=== PATIENT | male | born 1950 | race Caucasian/White ===

== ENCOUNTER 2025-07-27 09:13 | Outpatient (CLI) | payer MEDICARE, SELFPAY ==
--- NOTE | 2025-07-27 09:40 | NEURO_ITS ---
Impression: # 74 year old with history of neck surgery in the past complains of left hand weakness. # Bilateral Ulnar Neuropathy around the elbows. # Mild left Carpal Tunnel Syndrome. # Needle/ EMG exam abnormal more so on 1st DI in the left more than right. # Also decreased motor unit potentials proximally suggestive of old injury though acute cannot be ruled out. # MRI of C- Spine suggested. Nerve Conduction Studies ?Stim Site NR Peak (ms) P-T Amp (?V) Site1 Site2 Delta-P (ms) Dist (cm) [place] (m/s) Left Median Anti Sensory (2-3nd Digit) Wrist ? 3.3 17.1 Wrist 2-3nd Digit 3.3 14.0 42 Wrist ? 3.2 17.2 Wrist 2-3nd Digit 3.3 14.0 42 Right Median Anti Sensory (2-3nd Digit) Wrist ? 3.1 18.8 Wrist 2-3nd Digit 3.1 14.0 45 Wrist ? 3.2 18.2 Wrist 2-3nd Digit 3.1 14.0 45 Left Radial Anti Sensory (Base 1st Digit) Wrist ? 2.1 12.3 Wrist Base 1st Digit 2.1 0.0 Right Radial Anti Sensory (Base 1st Digit) Wrist ? 2.6 11.5 Wrist Base 1st Digit 2.6 0.0 Left Ulnar Anti Sensory (5th Digit) Wrist ? 2.6 19.4 Wrist 5th Digit 2.6 14.0 54 Right Ulnar Anti Sensory (5th Digit) Wrist ? 2.6 18.7 Wrist 5th Digit 2.6 14.0 54 ?Stim Site NR Onset (ms) O-P Amp (mV) Site1 Site2 Delta-0 (ms) Dist (cm) [place] (m/s) Left Median Motor (Abd Poll Brev) Wrist ? 4.5 1.3 Elbow Wrist 5.9 31.0 53 Elbow ? 10.4 1.4 Right Median Motor (Abd Poll Brev) Wrist ? 3.5 2.5 Elbow Wrist 5.6 32.0 57 Elbow ? 9.1 2.3 Left Ulnar Motor (Abd Dig Minimi) Wrist ? 3.2 4.5 A Elbow Wrist 6.4 32.0 50 A Elbow ? 9.6 3.3 B Elbow Wrist 4.6 23.0 50 B Elbow ? 7.8 2.6 Right Ulnar Motor (Abd Dig Minimi) Wrist ? 2.7 6.1 A Elbow Wrist 6.4 32.0 50 A Elbow ? 9.1 5.2 B Elbow Wrist 4.2 21.0 50 B Elbow ? 6.9 4.5 F Wave Studies ?NR F-Lat (ms) L-R F-Lat (ms) Left Median (Mrkrs) (Abd Poll Brev) ? 26.66 0.64 Right Median (Mrkrs) (Abd Poll Brev) ? 27.31 0.64 Left Ulnar (Mrkrs) (Abd Dig Min) ? 35.84 0.03 Right Ulnar (Mrkrs) (Abd Dig Min) ? 35.81 0.03 Electromyography ?Side Muscle Nerve Root Ins Act Fibs Amp Dur Recrt Comment Right 1stDorInt Ulnar C8-T1 Nml Nml Nml Nml Nml Left 1stDorInt Ulnar C8-T1 Nml 1+ Nml >12ms +1 Right ABD Dig Min Ulnar C8-T1 Nml Nml Nml Nml Nml Left ABD Dig Min Ulnar C8-T1 Nml 1+ Nml >12ms +1 Left Abd Poll Brev Median C8-T1 Nml Nml Nml Nml Nml Right Abd Poll Brev Median C8-T1 Nml Nml Nml Nml Nml Right Abd Poll Long Radial (Post Int) C7-8 Nml Nml Nml Nml Nml Left Abd Poll Long Radial (Post Int) C7-8 Nml Nml Nml Nml Nml Left Biceps Musculocut C5-6 Nml Nml Nml >12ms +1 Right Biceps Musculocut C5-6 Nml Nml Nml Nml Nml Left BrachioRad Radial C5-6 Nml Nml Nml Nml Nml Right BrachioRad Radial C5-6 Nml Nml Nml Nml Nml Left Deltoid Axillary C5-6 Nml Nml Nml >12ms +1 Right Deltoid Axillary C5-6 Nml Nml Nml Nml Nml Right Ext Digitorum Radial (Post Int) C7-8 Nml Nml Nml Nml Nml Left Ext Digitorum Radial (Post Int) C7-8 Nml Nml Nml Nml Nml Right Ext Indicis Radial (Post Int) C7-8 Nml Nml Nml Nml Nml Left Ext Indicis Radial (Post Int) C7-8 Nml Nml Nml Nml Nml Right FlexPolLong Median (Ant Int) C7-8 Nml Nml Nml Nml Nml Left FlexPolLong Median (Ant Int) C7-8 Nml Nml Nml Nml Nml Left PronatorTeres Median C6-7 Nml Nml Nml Nml Nml Right PronatorTeres Median C6-7 Nml Nml Nml Nml Nml Left Triceps Radial C6-7-8 Nml Nml Nml >12ms +1 Right Triceps Radial C6-7-8 Nml Nml Nml Nml Nml
--- OUTSIDE RECORDS SUMMARY | 2025-07-27 10:02 | XMS_ITS | Patient Health Record ---
Author Organization [facility] Address [address] [place] [address] Care Team Providers Care Customs Patrol Officer Name Role Phone Dr. Gurjit Shin Primary Care Provider [phone] Pritesh Child Unavailable [phone] Jasmina Gutierrez Unavailable [phone] Migration, Provider Unavailable Unavailable Allergies No Known Allergies Results Component Value Reference Range Flag Notes Methylmalonic Acid-[facility] Reviewed date:04/24/2025 09:21:13 PM Interpretation: Performing Lab: Notes/Report: Test Performed by: [place] [address] Claim Technician: Paolo Mayer DO Methylmalonic Acid See Below Chart Name Results Units Flag Ref Range Methylmalonic Acid 0.27 0.00-0.40 INTERPRETIVE INFORMATION: MMA Serum/Plasma, Metabolic Disorder This test was developed and its performance characteristics determined by [facility]. It has not been cleared or approved by the US Food and Drug Administration. This test was performed in a CLIA certified laboratory and is intended for clinical purposes. Performed By: [facility] [address] [place] [id number] Gutter Hanger: Darell Bardales MD, PhD CLIA Number: [id number] Erythrocyte Sedimentation Ra te Reviewed date:04/24/2025 09:21:13 PM Interpretation: Performing Lab: Notes/Report: Test Performed by: [place] [id number] Claim Technician: Paolo Mayer DO ESR, Westergren 2 0-20 mm/hr Creatine Kinase Reviewed date:04/24/2025 09:21:13 PM Interpretation: Performing Lab: Notes/Report: Test Performed by: [place] [address] Claim Technician: Paolo Mayer DO CK 227 30-223 unit/L H Magnesium Reviewed date:04/24/2025 09:21:13 PM Interpretation: Performing Lab: Notes/Report: Test Performed by: [place] [address] Claim Technician: Paolo Mayer DO Magnesium Lvl 1.9 1.6-2.4 mg/dL CHINO by IFA Reflexive Profile -[facility] Reviewed date:05/30/2025 07:53:33 PM Interpretation: Performing Lab: Notes/Report: Test Performed by: [place] [address] Claim Technician: Paolo Mayer DO CHINO IFA Rflx See Below Chart Name Results Units Flag Ref Range Antinuclear Ab HEp-2, IgG <1:80 <1:80 CHINO Interpretive Comment See Note Antinuclear antibodies by IFA negative for homogeneous, speckled, nucleolar, centromere, and nuclear dots patterns. Cytoplasmic antibodies by IFA negative for reticular/AMA, discrete/GW body-like, polar/golgi-like, rods and rings, and cytoplasmic speckled patterns. INTERPRETIVE INFORMATION: CHINO Interpretive Comment Presence of antinuclear antibodies (CHINO) is a hallmark feature of systemic autoimmune rheumatic diseases (SARD). However, CHINO lacks diagnostic specificity and is associated with a variety of diseases (cancers, autoimmune, infectious, and inflammatory conditions) and may also occur in healthy individuals in varying prevalence. The lack of diagnostic specificity requires confirmation of positive CHINO by more specific serologic tests. CHINO (nuclear reactivity) positive patterns reported include centromere, homogeneous, nuclear dots, nucleolar, or speckled. CHINO (cytoplasmic reactivity) positive patterns reported include reticular/AMA, discrete/GW body-like, polar/golgi-like, cytoplasmic speckled or rods and rings. All positive patterns are reported to endpoint titers (1:2560). Reported patterns may help guide differential diagnosis, although they may not be specific for individual antibodies or diseases. Mitotic staining patterns not reported. Negative results do not necessarily rule out SARD. Performed By: [facility] [address] [place] [id number] Gutter Hanger: Darell Bardales MD, PhD CLIA Number: [id number] Aldolase, Serum-[facility] Reviewed date:05/30/2025 07:53:33 PM Interpretation: Performing Lab: Notes/Report: Test Performed by: [place] [address] Claim Technician: Paolo Mayer DO Aldolase See Below Chart Name Results Units Flag Ref Range Aldolase 4.8 1.2-7.6 REFERENCE INTERVAL: Aldolase Access complete set of age- and/or gender-specific reference intervals for this test in the [facility] Laboratory Test Directory ([place]). Performed By: [facility] [address] [place] [id number] Gutter Hanger: Darell Bardales MD, PhD CLIA Number: [id number] Erythrocyte Sedimentation Ra te Reviewed date:05/30/2025 07:53:33 PM Interpretation: Performing Lab: Notes/Report: Test Performed by: [place] [address] Claim Technician: Paolo Mayer DO ESR See below Cancelled from lab ESR, Westergren 2 0-20 mm/hr PTHI No Calcium Reviewed date:05/30/2025 07:53:33 PM Interpretation: Performing Lab: Notes/Report: Test Performed by: [place] [address] Claim Technician: Paolo Mayer DO Parathyroid Hormone, Intact 54.3 12.0-88.0 pg/mL Comprehensive Metabolic Pane l Reviewed date:05/30/2025 07:53:33 PM Interpretation: Performing Lab: Notes/Report: Test Performed by: [place] [address] Claim Technician: Paolo Mayer DO Glucose Lvl 101 74-109 mg/dL ADA risk stratification for diabetes <100 mg/dL = Normal 100-125 mg/dL = Increased risk for future diabetes >=126 mg/dL = Diabetes, if on more than one testing occasion BUN 14 7-25 mg/dL Creatinine Lvl 1.07 0.70-1.30 mg/dL eGFR CKD-EPI 73 >=90 mL/min/1.73 m2 L The CKD-EPI equation is validated in individuals 18 years of age and older. It is less accurate in patients with extremes of muscle mass, restriction of dietary protein, ingestion of creatine, extra-renal metabolism of creatinine, or treatment with medications that affect renal tubular creatinine secretion. GFR Categories in Chronic Kidney Disease (CKD) GFR GFR (mL/min/1.73 Category: square meters): Interpretation: G1 90 or greater Normal or high* G2 60-89 Mild decrease* G3a 45-59 Mild to moderate decrease G3b 30-44 Moderate to severe decrease G4 15-29 Severe decrease G5 14 or less Kidney failure *In the absence of evidence of kidney damage, neither GFR category G1 nor G2 fulfill the criteria for CKD (Kidney Int Suppl 2013;3:1-150) Calcium Lvl 9.7 8.6-10.3 mg/dL Sodium Lvl 137 136-145 mmol/L Potassium Lvl 4.2 3.5-5.1 mmol/L Chloride Lvl 105 98-107 mmol/L CO2 26 21-31 mmol/L Anion Gap 6.5 <=16.0 mmol/L Alk Phos 61 34-104 unit/L Bilirubin Total 0.6 0.3-1.0 mg/dL Albumin Lvl 4.7 3.5-5.2 g/dL Protein Total 7.1 6.4-8.9 g/dL Albumin/Globulin Ratio 2.0 1.1-2.5 ALT 23 7-52 unit/L AST 22 13-39 unit/L Creatine Kinase Reviewed date:05/30/2025 07:53:33 PM Interpretation: Performing Lab: Notes/Report: Test Performed by: [place] [id number] Claim Technician: Paolo Mayer DO CK 322 30-223 unit/L H Lipid Panel {Chol, Trig, HDL , LDL} Reviewed date:05/30/2025 07:53:33 PM Interpretation: Performing Lab: Notes/Report: Test Performed by: [place] [id number] Claim Technician: Paolo Mayer DO Cholesterol Total 202 <=199 mg/dL H Triglycerides 213 0-149 mg/dL H Triglyceride Reference Ranges: <150 mg/dL Normal 150 - 199 mg/dL Borderline High 200 - 499 mg/dL High >=500 mg/dL Very High LDL 106 <=100 mg/dL H LDL Optimal: <100 Near or above optimal: 100-129 Borderline high: 130-159 High: 160-189 Very high: >=190 Coronary heart disease risk factors should be considered when determining LDL goals. Please refer to ATPIII guidelines for further information. If LDL is not calculated, please call the lab to add on the direct LDL methodology, if desired. HDL 54 23-92 mg/dL Non HDL Cholesterol 148 <=130 mg/dL H Chol/HDL 4 0-5 Magnesium Reviewed date:05/30/2025 07:53:33 PM Interpretation: Performing Lab: Notes/Report: Test Performed by: [place] [address] Claim Technician: Paolo Mayer DO Magnesium Lvl 2.0 1.6-2.4 mg/dL T4 Free Reviewed date:04/08/2025 09:45:27 PM Interpretation: Performing Lab: Notes/Report: Test Performed by: [place] [address] Claim Technician: Paolo Mayer DO T4 Free 0.91 0.60-1.70 ng/dL CBC w Auto Diff Reviewed date:04/08/2025 09:45:27 PM Interpretation: Performing Lab: Notes/Report: Test Performed by: [place] [address] Claim Technician: Paolo Mayer DO WBC 5.9 4.0-11.7 K/mcL RBC 4.71 4.28-5.56 x10*6/mcL Hgb 14.8 13.0-17.0 g/dL Hct 42.2 38.1-48.9 % MCV 89.7 83.4-98.1 fL MCH 31.4 27.0-34.2 pg MCHC 35.0 31.8-35.3 g/dL RDW 12.3 12.0-16.4 % Platelets 177 149-393 K/mcL MPV 10.0 7.0-11.0 fL Neutro Auto 66.5 45.3-79.0 % Lymph Auto 22.3 11.8-45.9 % [place] Auto 8.4 4.4-12.0 % Eosinophil Auto 1.7 0.0-6.3 % Basophil Auto 1.1 0.2-1.6 % Neutro Absolute 3.9 2.4-8.4 x10*3/mcL Lymph Absolute 1.3 0.8-3.7 x10*3/mcL [place] Absolute 0.5 0.3-1.1 x10*3/mcL Eos Absolute 0.1 0.0-0.5 x10*3/mcL Baso Absolute 0.1 0.0-0.1 x10*3/mcL Comprehensive Metabolic Pane l Reviewed date:04/08/2025 09:45:27 PM Interpretation: Performing Lab: Notes/Report: Test Performed by: [place] [address] Claim Technician: Paolo Mayer DO Glucose Lvl 94 74-109 mg/dL ADA risk stratification for diabetes <100 mg/dL = Normal 100-125 mg/dL = Increased risk for future diabetes >=126 mg/dL = Diabetes, if on more than one testing occasion BUN 13 7-25 mg/dL Creatinine Lvl 1.16 0.70-1.30 mg/dL eGFR CKD-EPI 67 >=90 mL/min/1.73 m2 L The CKD-EPI equation is validated in individuals 18 years of age and older. It is less accurate in patients with extremes of muscle mass, restriction of dietary protein, ingestion of creatine, extra-renal metabolism of creatinine, or treatment with medications that affect renal tubular creatinine secretion. GFR Categories in Chronic Kidney Disease (CKD) GFR GFR (mL/min/1.73 Category: square meters): Interpretation: G1 90 or greater Normal or high* G2 60-89 Mild decrease* G3a 45-59 Mild to moderate decrease G3b 30-44 Moderate to severe decrease G4 15-29 Severe decrease G5 14 or less Kidney failure *In the absence of evidence of kidney damage, neither GFR category G1 nor G2 fulfill the criteria for CKD (Kidney Int Suppl 2013;3:1-150) Calcium Lvl 9.8 8.6-10.3 mg/dL Sodium Lvl 141 136-145 mmol/L Potassium Lvl 4.1 3.5-5.1 mmol/L Chloride Lvl 107 98-107 mmol/L CO2 27 21-31 mmol/L Anion Gap 6.7 <=16.0 mmol/L Alk Phos 66 34-104 unit/L Bilirubin Total 0.7 0.3-1.0 mg/dL Albumin Lvl 4.5 3.5-5.2 g/dL Protein Total 6.8 6.4-8.9 g/dL Albumin/Globulin Ratio 2.0 1.1-2.5 ALT 20 7-52 unit/L AST 20 13-39 unit/L Lipid Panel {Chol, Trig, HDL , LDL} Reviewed date:04/08/2025 09:45:27 PM Interpretation: Performing Lab: Notes/Report: Test Performed by: [place] [id number] Claim Technician: Paolo Mayer DO Cholesterol Total 168 <=199 mg/dL Triglycerides 66 0-149 mg/dL Triglyceride Reference Ranges: <150 mg/dL Normal 150 - 199 mg/dL Borderline High 200 - 499 mg/dL High >=500 mg/dL Very High LDL 103 <=100 mg/dL H LDL Optimal: <100 Near or above optimal: 100-129 Borderline high: 130-159 High: 160-189 Very high: >=190 Coronary heart disease risk factors should be considered when determining LDL goals. Please refer to ATPIII guidelines for further information. If LDL is not calculated, please call the lab to add on the direct LDL methodology, if desired. HDL 51 23-92 mg/dL Non HDL Cholesterol 117 <=130 mg/dL Chol/HDL 3 0-5 Thyroid Stimulating Hormone Reviewed date:04/08/2025 09:45:27 PM Interpretation: Performing Lab: Notes/Report: Test Performed by: [address] [id number] Claim Technician: Paolo Mayer DO TSH 1.16 0.45-5.33 mcIU/mL Uric Acid Reviewed date:04/08/2025 09:45:27 PM Interpretation: Performing Lab: Notes/Report: Test Performed by: [address] [address] Claim Technician: Paolo Mayer DO Uric Acid 6.6 4.4-7.6 mg/dL Vitamin B12 Reviewed date:04/08/2025 09:45:27 PM Interpretation: Performing Lab: Notes/Report: Test Performed by: [address] [address] Claim Technician: Paolo Mayer DO Vitamin B12 Lvl 291 180-914 pg/mL Vitamin B12 Interpretation: Normal Range: 180-914 pg/mL Indeterminate: 140-180 pg/mL Deficient: <140 pg/mL PSA Annual Screening Reviewed date:04/08/2025 09:45:27 PM Interpretation: Performing Lab: Notes/Report: Test Performed by: [place] [address] Claim Technician: Paolo Mayer DO PSA Total 1.39 0.00-4.00 ng/mL Reason For Referral Reason Scary story of troub le breathing episodes x 6 over past year Diagnosis 1 Laryngeal spasm (J38 .5) Referral Organization [facility] Referring Provider First Name Dr. Cagle Referring Provider Last Name Kip Referring Provider Speciality Pediatrics Referred Provider Specialty Ear, nose an d throat surgeon General Notes Dr. Gurjit Shin 04/14/2025 10:27:54 AM CDT >Pt would prefer not [facility]. Lives in [place], Edel Hensley 04/15/2025 11:26:00 AM CDT >Waiting for note to be completed to send referral, Demetrice Arriaza 04/23/2025 01:10:12 PM CDT >note signed off now, please send and update pt that it was sent he called and asked about this, Edel Hensley 04/23/2025 02:30:41 PM CDT >[facility] doesn't have ENT providers in either [place] or [place]. [facility] is pt's option. Referral faxed to Dr. Quiñones [phone], Amy Diaz 06/15/2025 01:49:36 PM CDT >Patient called stating he has appt with ENT tomorrow. Referral Priority Urgent Reason PT for sciatica to e shandra and treat Diagnosis 1 Right sided sciatica (M54.31) Referral Organization [facility] Referring Provider First Name Dr. Cagle Referring Provider Last Name Kip Referring Provider Speciality Pediatrics Referred Provider Specialty Physical The rapist General Notes Pat Suarez 0 06/23/2025 04:37:45 PM CDT [facility]/23/2025 04:57:26 PM CDT >Faxed to [facility] Referral Priority Routine Medications Medication SIG (Take, Route, Frequency, Duration) Notes Start Date End Date Status Multivitamin oral; Duration: 0 *Pick strength-form from [employer] for eRX* 10/16/2022 Active Meloxicam 7.5 MG Tablet 1 tablet Orally Once a day; Duration: 90 days Active Ezetimibe 10 MG Tablet 1 tablet Orally Once a day; Duration: 90 days Not-Taking Tadalafil 5 MG Tablet 1 tablet Orally Once a day; Duration: 90 days Active Rdbogl-Ocuyynker-XLS Complex Active Tamsulosin HCl 0.4 MG Capsule 1 capsule Orally Once a day; Duration: 90 days Active Immunizations Vaccine Route Administration Date Status Comme nts Tdap Unknown 08/06/2016 Administered ,sourcename : Historical information -from other registry Source VFC Code: : Zoster IM Intramuscular 08/29/2021 Administered ,[facility] [place] : New immunization record ,immstatus : Complete Zoster IM Intramuscular 06/25/2022 Administered ,[facility] [place] : New immunization record ,immstatus : Complete Pneumococcal polysaccharide PPV23 IM Intramuscular 07/25/2021 Administered ,sourcename : N ew immunization record ,immstatus : Complete Pneumococcal conjugate PCV 13 Unknown 08/06/2016 Administered ,sourcename : Historical information -from other registry Source VFC Code: : Pfizer-Biontech Covid-19 Vaccine 1st dose IM Intramuscular 11/27/2021 Administered Source VFC Code: : Pfizer-Biontech Covid-19 Vaccine 1st dose Unknown 10/25/2022 Administered ,sourcename : Historical information -from public agency Source VFC Code: : Influenza, high dose seasonal Unknown 10/25/2022 Administered ,sourcename : Historical information -from public agency Source VFC Code: : Social History Social History Drug/Alcohol: Social Info Question Answer Notes AUDIT-C (Standard) Did you have a drink containing alcohol in the past year? Yes How often did you have a drink containing alcohol in the past year? 2 to 3 times a week (3 points) How many drinks did you have on a typical day when you were drinking in the past year? 5 or 6 drinks (2 points) How often did you have six or more drinks on one occasion in the past year? Less than monthly (1 point) Points 6 Interpretation Positive Additional Details Category Social Info Options Details Migrated Social History Migrated Social History Alcohol history:Currently drinks alcohol , Marital status: , Frequency of drinks:Drinks rarely , Tobacco history:Never smoker , Number of children:2 Problems Problem Type SNOMED Code ICD Code Onset Dates Problem Status W/U Status Risk Notes Problem Mixed hyperlipidemia (030857163) Mixed hyperlipidemia (E78.2) 04/14/20 21 Active confirmed Problem Rosacea (155138124) Rosacea, unspecified (L71.9) 03/19/20 23 Active confirmed Problem Gout (06287229) Gout, unspecifie d (M10.9) 04/14/20 21 Active confirmed Problem BMI 25-29 - overweight (676181625) Body mass index (BMI) 25.0-25.9, adult (Z68.25) 07/16/20 24 Active confirmed Problem Lumbago (903440380) Lumbago (724.2) 02/28/20 17 Inactive confirmed Problem Hyperlipidemia (65073925) Hyperlipidemia, unspecified (E78.5) 07/25/20 21 Inactive confirmed Problem Adult health examination (705592012) Encounter for general adult medical examination without abnormal findings (Z00.00) 07/15/20 23 Inactive confirmed Problem Enlarged prostate (310784910) Enlarged prostate without lower urinary tract symptoms (N40.0) 10/16/20 22 Inactive confirmed Problem Mixed hyperlipidemia (353620344) Mixed hyperlipidemia (272.2) 08/06/20 16 Problem resolved confirmed Problem Hyperlipidemia (83044503) Other and unspecified hyperlipidemia (272.4) 08/03/20 16 Problem resolved confirmed Problem Seborrheic keratosis (53505822) Other seborrheic keratosis (L82.1) 03/23/20 22 Problem resolved confirmed Problem Low back pain (448161000) Low back pain (M54.5) 02/28/20 17 Problem resolved confirmed Problem Chronic fatigue syndrome (disorder) (33529033) Chronic fatigue, unspecified (R53.82) 04/14/20 21 Problem resolved confirmed Problem Vitamin B deficiency (76215720) Deficiency of other specified B group vitamins (E53.8) 03/23/20 22 Active confirmed Problem Laryngeal spasm (615362692) 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) Active confirmed Problem Cough (finding) (90988588) Cough, unspecified (R05.9) 03/01/20 23 Problem resolved confirmed Problem Vaccination given (442347619) Encounter for immunization (Z23) 03/23/20 22 Problem resolved confirmed Problem Nocturia (885813746) Nocturia (R35.1) 10/18/20 21 Problem resolved confirmed Problem Other specified symptoms and signs involving the circulatory and respiratory systems (R09.89) 07/03/20 22 Problem resolved confirmed Problem Cough (68375215) Cough (R05) 11/08/20 17 Problem resolved confirmed Problem Synovitis and tenosynovitis of joint of hand (disorder) (9352100095) Other synovitis and tenosynovitis, unspecified hand (M65.849) 06/25/20 22 Problem resolved confirmed Problem Pain in thoracic spine (294466150) Pain in thoracic spine (M54.6) 10/16/20 22 Problem resolved confirmed Problem Acute sinusitis (15237055) Acute sinusitis, unspecified (J01.90) 03/01/20 23 Problem resolved confirmed Problem Hyperuricemia without signs of inflammatory arthritis and tophaceous disease (691924454) Hyperuricemia without signs of inflammatory arthritis and tophaceous disease (E79.0) 03/23/20 22 Problem resolved confirmed Problem General examination of patient (210182298) Routine general medical examination at health care facility (V70.0) 08/06/20 16 Problem resolved confirmed Problem Benign prostatic hypertrophy without outflow obstruction (478682809) Hypertrophy (benign) of prostate without urinary obstruction and other lower urinary tract symptoms [LUTS] (600.00) 08/03/20 16 Problem resolved confirmed Problem Cough (27442930) Cough (786.2) 11/08/20 17 Inactive confirmed Problem Lower urinary tract symptoms due to benign prostatic hypertrophy (04129421051198) Enlarged prostate with lower urinary tract symptoms (N40.1) 10/18/20 21 Active confirmed Problem Body mass index 25-29 - overweight (468804351) Body mass index (BMI) 27.0-27.9, adult (Z68.27) 07/15/20 23 Active confirmed Problem Abnormal glucose level (915269391) Other abnormal glucose (R73.09) 03/23/20 24 Active confirmed Problem Impaired fasting glucose (367995152) Impaired fasting glucose (R73.01) 03/30/20 24 Active confirmed Problem Dizziness and giddiness (218927017) Dizziness and giddiness (R42) 10/18/20 21 Problem resolved confirmed Vital Signs Heart Rate 76 /min 07/15/2025 Temperature 97.7 degrees Fahrenheit 07/15/2025 Respiratory Rate 16 /min 08/18/2024 Height-cm 182.88 cm 07/15/2025 Blood pressure diastolic 62 mm Hg 07/15/2025 Oximetry 96 % 07/15/2025 Weight-kg 84.37 kg 07/15/2025 Height 72.00 in 07/15/2025 Blood pressure systolic 116 mm Hg 07/15/2025 Weight 186.0 lbs 07/15/2025 BMI 25.22 kg/m2 07/15/2025 Encounters Encounter Location Date Provider Diagnosis [address] [address] 08/18/2024 Jasmina Beckert Dermatitis, unspecified L30.[address] [address] 04/14/2025 Dr. Gurjit Shin Mixed hyperlipidemia E78.2 ; Laryngeal spasm J38.5 ; Vitamin B12 deficiency E53.8 and Muscle spasm M62.[address] [address] 05/26/2025 Dr. 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 Gurjit Shin [address] [address] 04/07/2025 Dr. Gurjit Shin Mixed hyperlipidemia E78.2 ; Gout, unspecified M10.9 ; Deficiency of other specified B group vitamins E53.8 and Screening for prostate cancer Z12.[address] [address] 04/24/2025 Dr. Gurjit Shin Muscle spasm M62.[address] [address] 05/30/2025 Dr. Gurjit Shin Elevated CK R74.8 ; Muscle cramps R25.2 and Myositis, unspecified myositis type, unspecified site M60.[address] [address] 06/23/2025 Dr. Gurjit Shin Right sided sciatica M54.[address] [address] 07/21/2025 [facility] Assessments Encounter Date Diagnosis (ICD Code) Assessment Notes Treatment Notes Treatment Clinical Notes Section Notes 06/23/2025 Right sided sciatica (ICD-10 - M54.31) 08/18/2024 Dermatitis, unspecified (ICD-10 - L30.9) 04/14/2025 Mixed hyperlipidemia (ICD-10 - E78.2) MANAGEMENT: Condition stable. Continue same treatment plan. RECOMMENDATIONS: Maintain a regular exercise program. Reduce the amount of cholesterol and saturated fat in your diet. (Limiting red meats and dairy)FOLLOWUP: Return to clinic in 6 months for recheck. 04/14/2025 Laryngeal spasm (ICD-10 - J38.5) 05/26/2025 Muscle cramps (ICD-10 - R25.2) 07/15/2025 Encounter for subsequent annual wellness visit (AWV) in Medicare patient (ICD-10 - Z00.00) AWV Instructions The patient's health risk assessment was reviewed during this visit. The patient's chart was reviewed and updated See scanned images from paperwork reviewed and completed today The following topics have been addressed/discus sed at today's visit: All recommended screening services (as applicable) including infectious diseases, osteoporosis, diabetes and/or diabetes complications, glaucoma, cognitive impairment, hearing impairment, alcohol misuse, cancer screening Fall risk assessment Alcohol misuse Counseling (if applicable) Tobacco Cessation Counseling (if applicable) Immunizations Vital Signs End of Life Care Patient was provided with a written copy of the care plan from today's visit to include topics of Fall prevention, Nutrition, Physical activity, Tobacco-use cessation, Social engagement, Weight loss, Cognition. PHQ-9 was administered today. 5 Mins spent discussing with the patient. 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 Smaller L hand side. Could be related to possible arthritic changes in thumb and index finger. 05/26/2025 Elevated CK (ICD-10 - R74.8) 04/14/2025 Vitamin B12 deficiency (ICD-10 - E53.8) 04/14/2025 Muscle spasm (ICD-10 - M62.838) 04/07/2025 Screening for prostate cancer (ICD-10 - Z12.5) 07/15/2025 Mixed hyperlipidemia (ICD-10 - E78.2) - Continue to hold ezetimibe, cholesteral, triglycerides, and LDL elevated but foot pain improved after stopping med. Will recheck lipids in 6 months. 07/15/2025 Enlarged prostate with lower urinary tract symptoms (ICD-10 - N40.1) - Continue tamsulosin, condition stable and controlled 07/15/2025 Laryngeal spasm (ICD-10 - J38.5) - Has testing and follow up scheduled next month with voice box specialist. Plan Of Treatment Pending Test Test Name Order Date X ray : Hand, left 07/15/2025 EMG/NCV ARMS 05/30/2025 Myositis Panel-ARUP 05/30/2025 Angiotensin Converting Enzyme, Serum-ARU P 05/30/2025 Lactate Dehydrogenase 05/30/2025 Future Test Test Name Order Date Creatine Kinase 05/26/2025 Next Appt Details Provider Name:Dr. Gurjit shanks, 06/27/2026 01:00:00 PM, [address] [employer] [address] [employer] [address]) [place], [address], [phone] Insurance Providers Payer Name Payer Address Payer Phone Subscriber Number Group Number Insured Name Patient Relationship to Insured Coverage Start Date Coverage End Date [facility] Medicare RHC [address] [place] [address] [id number] Varun Rose Self - patient is the insured 2 5 [employer] Medicare B [address] [place] [address] [id number] Varun Rose Self - patient is the insured 2 5 [employer] Medicare Advantage Ppo [address] [place] [address] [id number] Varun Rose Self - patient is the insured 5 [employer] [address] [place] [address] [id number] Varun Rose Self - patient is the insured 2 5 Medical (General) History Medical History History ICD Code Mixed hyperlipidemia E78.2 Gout, unspecified M10.9 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
--- OUTSIDE RECORDS SUMMARY | 2025-07-27 10:02 | XMS_ITS | Clinical Summary ---
Author Organization [facility] Address [address] [place] [address] Care Team Providers Care [employer] Person Name Role Phone Gurjit Shin MD Primary Care Provider [phone] Allergies No known active allergies Medications diclofenac DR (VOLTAREN) 75 mg EC tablet Take one BID x 10 days then as needed for pain 60 tablet 05/29/2018 Active tamsulosin (FLOMAX) 0.4 mg extended release capsule Take by mouth daily Active tadalafiL (CIALIS) 5 mg tablet Take 1 tablet (5 mg total) by mouth daily 04/24/2024 Active meloxicam (MOBIC) 7.5 mg tablet Take 1 tablet (7.5 mg total) by mouth daily Active Active Problems No known active problems Encounters Date Type Department Care Team Description 07/23/2025 8:00 AM CDT Therapy [facility] Otol[facility]ology [address] [place] [phone] Flor Trujillo, AUTHORIZATION MANAGER Paradoxical vocal fold motion disorder (Primary Dx); Dysphonia; Vocal fold paralysis, unilateral; Vocal fold paresis 06/24/2025 10:00 AM CDT Therapy [facility] Otol[facility]ology [address] [place] [phone] Flor Trujillo, AUTHORIZATION MANAGER Dysphonia (Primary Dx); Paradoxical vocal fold motion disorder; Vocal fold paralysis, unilateral; Vocal fold paresis 06/21/2025 Telephone [facility] ENT [address] [facility] Office [facility] [address] [place] [phone] Manda Field CMA 06/21/2025 Telephone [facility] Otolaryngology [address] [place] [address] Lilian Contreras MS 06/16/2025 9:20 AM CDT Therapy [facility] Otol[facility]ology [address] [place] [address] Office [facility] [address] [place] [phone] Verena Felipe SLP Dysphonia (Primary Dx); Paradoxical vocal fold motion disorder; Vocal fold paralysis, unilateral; Vocal fold paresis; Other diseases of larynx 06/16/2025 9:20 AM CDT Office Visit [facility] ENT [facility] [address] [place] [phone] Oneida Cervantes MD Dysphonia (Primary Dx); Other diseases of larynx; Dyspnea, unspecified type 05/04/2025 Telephone [facility] Otol[facility]ology [address] [place] [address] Lilian Contreras, from Last 3 Months Surgical History Surgery Date Site/Laterality Comments FL FLUORO GUIDED LUMBAR PUNCTURE 05/29/2018 Right FL FLUORO GUIDED LUMBAR PUNCTURE 01/22/2019 Right SURGERY FOR CONGENITAL HERNIA APPENDECTOMY Social History Tobacco Use Types Packs/Day Years Used Date Smoking Tobacco: Never Tobacco Cessation:Counseling Given: Not Answered AUDIT-C Answer Date Recorded Q1: How often do you have a drink containing alc ohol? Monthly or less 06/16/2025 Average Number of Drinks Not on file 025 Frequency of Binge Drinking Not on file 05/20 Sex and Gender Information Value Date Recorded Sex Assigned at Not on file Legal Sex Male 3:29 PM SQE Gender Identity Not on file Sexual Orientation Not on file Obstetrics History Last Filed Vital Signs Vital Sign Reading Time Taken Comments Blood Pressure 138/75 06/16/2025 9:25 AM CDT Pulse 73 06/16/2025 9:25 AM CDT Temperature - - Respiratory Rate - - Oxygen Saturation - - Inhaled Oxygen Concentration - - Weight 84.8 kg (187 lb) 06/16/2025 9:25 AM CDT Height 185.4 cm (6' 1) 06/16/2025 9:25 AM CDT Body Mass Index 24.67 06/16/2025 9:25 AM CDT Plan of Treatment Health Maintenance Due Date Last Done Comments Colon Cancer Screening-Colonoscopy 1950 Depression Screening 1950 Fall Risk Assessment 1950 Hepatitis C Screening 1950 Hepatitis B Screening 1970 Well Visit 65+ 2017 Zoster Vaccine (2 of 2) 08/20/2022 06/25/2022, 08/29 Covid-19 Vaccine (4 - 2024-2 6 season) 2025 10/25/2022, 10/24/2022, 11/27/2021 Influenza Vaccine (#1) 2025 , 10/24/2022, 09/24/2020, Additional history exists DTaP/Tdap/Td Vaccine (2 - Td or Tdap) 08/06/2026 08/06/2016 Pneumococcal vaccine 65+ Completed 07/25/2021, 07/19 Insurance AET MEDICARE MEDICARE [employer] Care Teams [employer] Person Relationship Specialty Start Date End Date Gurjit Shin MD [address] [place] [address] PCP - General 12/09/17
== END 2025-07-27 09:14 | disposition home or self-care (01) ==
PROVIDERS: Visit Provider Pediatrics
DX: G56.23 Lesion of ulnar nerve, bilateral upper limbs (principal); G56.03 Carpal tunnel syndrome, bilateral upper limbs; Z98.890 Other specified postprocedural states; M60.9 Myositis, unspecified; R53.1 Weakness
CPT/HCPCS: 95886; 95911

== ENCOUNTER 2025-08-09 10:33 | Outpatient (CLI) | payer MEDICARE, SELFPAY ==
--- NOTE | ~2025-08-09 | MR_ITS ---
EXAMINATION: MR cervical spine wo con DATE: 08/09/2025 11:14 INDICATION: Left upper extremity weakness TECHNIQUE: Magnetic resonance imaging (MRI) of the cervical spine was performed without intravenous contrast. Sequences included sagittal T2-weighted FSE, sagittal T2-weighted FS FSE, sagittal T1-weighted FSE, axial MERGE and axial T2- weighted FSE. COMPARISON: None FINDINGS: Bone alignment is normal. C5-C7 anterior spinal fusion with anterior plate and screw fixation. Vertebral body heights are normal. Bone marrow signal intensity is normal. Mild disc height loss at C4-C5 and C7-T1, minimal disc height loss at C3-C4. Cord signal intensity is normal. Visualized cervical soft tissues are unremarkable. The following disc levels are specifically discussed: C2-C3: Disc is minimally bulging. There is mild left uncovertebral joint osteoarthritis. There is moderate left and mild to moderate right facet joint osteoarthritis. There is mild right neural foraminal stenosis. There is no central canal stenosis. C3-C4: Disc is bulging. There is mild left and moderate right uncovertebral joint osteoarthritis. There is mild right and severe left facet joint osteoarthritis. There is mild left and mild to moderate right neural foraminal stenosis. There is mild central canal stenosis. C4-C5: Disc is bulging. There is mild bilateral uncovertebral joint osteoarthritis. There is mild left and severe right facet joint osteoarthritis. There is mild left and moderate right neural foraminal stenosis. There is mild central canal stenosis. C5-C6: Anterior fusion. There is mild left and moderate right facet joint osteoarthritis. There is mild right and minimal left neural foraminal stenosis. There is no central canal stenosis. C6-C7: Anterior fusion. There is mild bilateral facet joint osteoarthritis. There is mild right neural foraminal stenosis. There is no central canal stenosis. C7-T1: Disc is bulging. There is mild bilateral uncovertebral joint osteoarthritis. There is mild bilateral facet joint osteoarthritis. There is no neural foraminal stenosis. There is mild central canal stenosis. IMPRESSION: 1. Mild cervical spondylosis with instrumented C5-C7 anterior spinal fusion. Reviewed, dictated and finalized at location A.
== END 2025-08-09 10:34 | disposition home or self-care (01) ==
LOC: GOSHIMG 10:34
PROVIDERS: PCP Pediatrics; Visit Provider Pediatrics
DX: R29.898 Other symptoms and signs involving the musculoskeletal system (principal); Z98.890 Other specified postprocedural states; M47.892 Other spondylosis, cervical region; Z98.1 Arthrodesis status
CPT/HCPCS: 72141